=== PATIENT | female | born 1970 | race American Indian/Alaskan Native ===

== ENCOUNTER 2017-10-12 12:08 | Emergency (ER) | payer MEDICAID ==
[2017-10-12] MEDS ORDERED: NORCO 7.5/325 PO ONE (13:00)
[2017-10-12] MEDS ORDERED: CATAPRES PO ONE (13:01)
--- NOTE | 2017-10-12 13:01 | Emergency Department Report ---
Blank Doc - Documentation Documentation: Patient is a 47-year-old [place] female no significant past history except for hypertension who is presenting with a global headache. Patient states headache is been constant for approximately 1 week with some mild dizziness. Patient states this aching pain 9 out of 10 in severity. Patient's blood pressure has been elevated she's been out of her blood pressure medicines for the past 2 months. Patient denies any seizure activity syncope chest pain shortness of breath decreased urination Patient will be given pain meds clonidine for blood pressure and head CT UB done to rule out any intraparenchymal bleed
--- NOTE | 2017-10-12 13:28 | Emergency Department Report ---
ED Headache HPI - General Chief Complaint: Headache Stated Complaint: MIGRAINE X 1 WEEK Time Seen by Provider: 10/12/17 12:46 - History of Present Illness Initial Comments: Patient is a 47-year-old female with a prior history of blood pressure was been out of her medication for the past 2 months presents to ED today complaining of headache. She denies any trauma or injuries., Loss of consciousness, lightheadedness or dizziness or blurry vision Allergies/Adverse Reactions: Allergies No Known Allergies Allergy (Verified 10/12/17 12:11) Home Medications: Ambulatory Orders Amlodipine Besylate/Benazepril [Amlodipine-Benazepril 5-20 mg] 1 each PO DAILY # 30 capsule 02/04/16 Nitrofurantoin Granite/M-Cryst [Macrobid CAP] 100 mg PO Q12HR #14 capsule 08/10/16 Butalb/Acetaminophen/Caffeine [Fioricet 50-300-40 mg CAP] 1 cap PO Q8HR PRN #20 cap 10/12/17 amLODIPine [Norvasc] 5 mg PO DAILY #60 tab 10/12/17 ED Review of Systems ROS: Stated complaint: MIGRAINE X 1 WEEK Other details as noted in HPI Constitutional: denies: chills, fever Eyes: denies: eye pain, eye discharge, vision change ENT: denies: ear pain, throat pain Respiratory: denies: cough, shortness of breath, wheezing Cardiovascular: denies: chest pain, palpitations Endocrine: no symptoms reported Gastrointestinal: denies: abdominal pain, nausea, vomiting, diarrhea Genitourinary: denies: urgency, dysuria, discharge Musculoskeletal: denies: back pain, joint swelling, arthralgia Skin: denies: rash, lesions Neurological: headache. denies: weakness, paresthesias, confusion, abnormal gait Psychiatric: denies: anxiety, depression Hematological/Lymphatic: denies: easy bleeding, easy bruising ED Past Medical Hx - Past Medical History Hx Hypertension: Yes - Surgical History Past Surgical History?: No - Social History Smoking Status: Never Smoker Substance Use Type: None - Medications Home Medications: Home Medications Medication Instructions Recorded Confirmed Last Taken Type Amlodipine Besylate/Benazepril 1 each PO DAILY #30 capsule 02/04/16 Unknown Rx [Amlodipine-Benazepril 5-20 mg] Nitrofurantoin Granite/M-Cryst 100 mg PO Q12HR #14 capsule 08/10/16 Unknown Rx [Macrobid CAP] Butalb/Acetaminophen/Caffeine 1 cap PO Q8HR PRN #20 cap 10/12/17 Unknown Rx [Fioricet 50-300-40 mg CAP] amLODIPine [Norvasc] 5 mg PO DAILY #60 tab 10/12/17 Unknown Rx ED Physical Exam - General Limitations: No Limitations General appearance: alert, in no apparent distress - Head Head exam: Present: atraumatic, normocephalic - Eye Eye exam: Present: normal appearance - ENT ENT exam: Present: mucous membranes moist - Neck Neck exam: Present: normal inspection - Respiratory Respiratory exam: Present: normal lung sounds bilaterally. Absent: respiratory distress - Cardiovascular Cardiovascular Exam: Present: regular rate, normal rhythm. Absent: systolic murmur, diastolic murmur, rubs, gallop - GI/Abdominal GI/Abdominal exam: Present: soft, normal bowel sounds - Extremities Exam Extremities exam: Present: normal inspection - Back Exam Back exam: Present: normal inspection - Neurological Exam Neurological exam: Present: alert, oriented X3, CN II-XII intact, normal gait, reflexes normal - Expanded Neurological Exam Expanded Patient oriented to: Present: person, place, time Speech: Present: fluid speech Cranial nerves: Facial Sensation: Normal Cerebellar function: Finger to Nose: Normal Sensory exam: Upper Extremity Light Touch: Normal, Lower Extremity Light Touch: Normal Motor strength exam: RUE: 5, LUE: 5, RLE: 5, LLE: 5 DTR: knee (R): 2+, knee (L): 2+ Best Eye Response (Simona): (4) open spontaneously Best Motor Response (Simona): (6) obeys commands Best Verbal Response (Simona): (5) oriented Simona Total: 15 - Psychiatric Psychiatric exam: Present: normal affect, normal mood - Skin Skin exam: Present: warm, dry, intact, normal color. Absent: rash ED Course Vital Signs 10/12/17 10/12/17 10/12/17 12:12 13:10 13:11 Temperature 98 F Pulse Rate 75 175 H Respiratory 18 16 Rate Blood Pressure 202/125 202/125 Blood Pressure [Right] O2 Sat by Pulse 99 Oximetry 10/12/17 10/12/17 10/12/17 13:59 14:00 14:34 Temperature Pulse Rate 66 59 L Respiratory 16 16 16 Rate Blood Pressure 173/106 Blood Pressure 181/116 [Right] O2 Sat by Pulse 100 99 Oximetry ED Medical Decision Making - Radiology Data Radiology results: report reviewed, image reviewed FINAL REPORT EXAM: CT HEAD/BRAIN WO CON HISTORY: HEATON severe HTN TECHNIQUE: CT of the head was performed. No intravenous contrast was administered. PRIORS: None. FINDINGS: There is no evidence of intracranial hemorrhage. There is no edema, mass effect or midline shift. There are no abnormal extra-axial fluid collections. The ventricles are appropriate for brain volume. There is no skull fracture seen. The visualized aspects of the sinuses are clear. IMPRESSION: There is no acute intracranial abnormality identified. Transcribed By: MARCELO Dictated By: ABDULLAHI GUEVARA MD Electronically Authenticated By: ABDULLAHI GUEVARA MD Signed Date/Time: 10/12/17 1000 - Medical Decision Making 47-year-old female presents with a uncontrolled hypertension with associated headache. ED course patient received pain medication and clonidine 0.[address] scan ordered, CT scan of the head shows no acute findings. Discussed this findings with the patient Blood pressure monitored blood pressure reduced well prior to discharge. However the patient's blood pressure medications are out. I refilled the patient's blood pressure medication and gave pain medication for headache. I discussed the patient's take medications daily and follow-up with the private care doctor. I discussed the patient has sometimes when the pressure is not controlled cause headache. Vital signs are stable, she is in no acute distress. She reports feeling better. She is speaking in fluid normal sentences with no neuro deficit. Critical care attestation.: If time is entered above; I have spent that time in minutes in the direct care of this critically ill patient, excluding procedure time. ED Disposition Clinical Impression: Uncontrolled hypertension Headache Qualifiers: Headache type: tension-type Headache chronicity pattern: acute headache Intractability: not intractable Qualified Code(s): G44.209 - Tension-type headache, unspecified, not intractable Disposition: DC-01 TO HOME OR SELFCARE Is pt being admited?: No Does the pt Need Aspirin: No Condition: Stable Instructions: Tension Headache (ED), Acute Headache (ED), Hypertension (ED) Additional Instructions: Make sure to follow up with the primary care physician as discussed. Take all your medications as you've been prescribed. If you have any worsening symptoms or develop new symptoms please return to ED immediately. Prescriptions: amLODIPine [Norvasc] 5 mg PO DAILY #60 tab Butalb/Acetaminophen/Caffeine [Fioricet 50-300-40 mg CAP] 1 cap PO Q8HR PRN #20 cap PRN Reason: Pain Referrals: PRIMARY CAREMD [Primary Care Provider] - 3-5 Days RADHA SMILEY MD [Referring] - 3-5 Days [facility] [Outside] - 3-5 Days [facility] [Outside] - 3-5 Days XU VELAZQUEZ MD [Staff Physician] - 3-5 Days (follow up with neurology as reffered.If headache persists) Forms: Accompanied Note, Work/School Release Form(ED) Time of Disposition: 14:12
--- NOTE | 2017-10-12 14:04 | Cat Scan Report ---
FINAL REPORT EXAM: CT HEAD/BRAIN WO CON HISTORY: HEATON severe HTN TECHNIQUE: CT of the head was performed. No intravenous contrast was administered. PRIORS: None. FINDINGS: There is no evidence of intracranial hemorrhage. There is no edema, mass effect or midline shift. There are no abnormal extra-axial fluid collections. The ventricles are appropriate for brain volume. There is no skull fracture seen. The visualized aspects of the sinuses are clear. IMPRESSION: There is no acute intracranial abnormality identified.
[2017-10-12 14:39] VITALS: BP 173/106
== END 2017-10-12 14:51 | disposition home or self-care (01) ==
LOC: ED 12:08
DX: G44.209 Tension-type headache, unspecified, not intractable (principal); I10 Essential (primary) hypertension
CPT/HCPCS: 70450; 82962